=== PATIENT | female | born 1930 ===

== ENCOUNTER 2017-01-21 12:36 | Day surgery (SDC) | payer OTHER ==
[2017-01-20 15:10] VITALS: BMI 25.7
[2017-01-21] MEDS ORDERED: Etomidate 20 mg/10ml Inj IV ONE ×2 (13:22→14:32)
[2017-01-21] MEDS ORDERED: Lidocaine 2% Jelly (5 ml) TOP ONE (13:22)
[2017-01-21] MEDS ORDERED: Phenylephrine 10 mg/ml Inj ONE (13:24)
[2017-01-21] MEDS ORDERED: Ketamine 50 mg/ml Inj (10 ml) ONE (13:24)
--- NOTE | 2017-01-28 14:07 | CARD ---
APPROVED REPORT EXAM: Transesophageal echocardiogram with color flow Doppler. INDICATION Aortic Valve Disease Aortic Valve AoV Peak Twxdjdvv153.0cm/Nikolas Peak GR.39mmHg Mitral Valve E/A ratio0.0 TDI E/Lateral E'0.0E/Medial E'0.0 Reason For Test : aortic stenosis evaluation PROCEDURE After obtaining informed consent, patient underwent transesophageal echo in the OR holding area. Type of Sedation : Conscious Sedation Sedation was provided by anesthesiologist. Sedation was achieved with intravenously. Transesophageal probe was inserted and advanced into esophagus without difficulty. The HORACE was performed without complications. Throughout the procedure, the blood pressure, pulse oximetry, cardiac rhythm, and rate were monitored. The patient tolerated the procedure without adverse effects. Recovery from conscious sedation was uneventful and vital signs were stable. LEFT VENTRICLE The left ventricle is normal size. There is borderline to mild concentric left ventricular hypertrophy. The left ventricular function is normal. The left ventricular ejection fraction is within the normal range. The Ejection Fraction is 50-55%. There is normal LV segmental wall motion. Transmitral Doppler flow pattern is Grade I-abnormal relaxation pattern. No left ventricle thrombus noted on this study. There is no ventricular septal defect visualized. There is no left ventricular aneurysm. RIGHT VENTRICLE The right ventricle is normal size. There is normal right ventricular wall thickness. The right ventricular systolic function is normal. ATRIA The left atrium is mildly dilated. The right atrium size is normal. The interatrial septum is intact with no evidence for an atrial septal defect. AORTIC VALVE The aortic valve is moderately to severely calcified. There is mild aortic regurgitation. There is severe valvular aortic stenosis. Calculated aortic valve area is 0.76 cm2 with maximum pressure gradient of 69 mmHg There is no aortic valvular vegetation. MITRAL VALVE Mitral annular calcification is mild to moderate. The mitral valve leaflets are thickened. There is no evidence of mitral valve prolapse. There is no mitral valve stenosis. Mitral regurgitation is mild to moderate. TRICUSPID VALVE The tricuspid valve is normal in structure. There is mild tricuspid regurgitation. There is no tricuspid valve prolapse or vegetation. There is no tricuspid valve stenosis. PULMONIC VALVE The pulmonary valve is normal in structure. There is no pulmonic valvular regurgitation. There is no pulmonic valvular stenosis. GREAT VESSELS The aortic root is normal in size. The ascending aorta is normal in size. The pulmonary artery is normal. The IVC is normal in size and collapses >50% with inspiration. PERICARDIAL EFFUSION The pericardium appears normal. There is no pleural effusion. <Conclusion> The left ventricular function is normal. The left ventricular ejection fraction is within the normal range. The Ejection Fraction is 50-55%. There is severe valvular aortic stenosis. Calculated aortic valve area is 0.76 cm2 with maximum pressure gradient of 69 mmHg
== END 2017-01-21 16:00 | disposition home or self-care (01) ==
LOC: H.LAB 12:36 → H.OPSURG 12:36
DX: I35.0 Nonrheumatic aortic (valve) stenosis (principal)
CPT/HCPCS: 93312; J2370